=== PATIENT | male | born 1995 | race Hispanic/Latino ===

== ENCOUNTER 2017-02-23 06:44 | Emergency (ER) | payer BC ==
[2017-02-23 06:51] VITALS: BP 128/70
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
[2017-02-23] MEDS ORDERED: ACETAMINOPHEN 325 MG TABLET PO ONE (07:20)
[2017-02-23] MEDS ORDERED: ACETAMINOPHEN 325 MG TABLET ONE (07:34)
--- OUTSIDE RECORDS SUMMARY | 2017-02-23 08:01 | XMS REPORT | Continuity of Care Document ---
:1995 Author Organization [email or web address] [place] [address] Care Team Providers Name Role Phone Dayday Jeter Krystyna Primary Care Provider [phone] Source Comments This disclosure is being made pursuant to the [employer] program and maynot contain all information available regarding this patient.[email or web address] Active Allergies and Adverse Reactions No Known Allergies Current Medications Be aware that medications may not be up to date as of this document. Alwaysverify current medications with the patient. 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 Routine general medical examination at a health care facility 07/10/2014 Resolved Problems Problem Noted Date Resolved Date Gynecomastia, male 07/04/2015 06/24/2016 Left breast lump 06/19/2015 06/24/2016 Social History Tobacco Use Types Packs/Day Years Used Date Current Every Day Smoker Cigarettes 0.25 Smokeless Tobacco: Never Used Alcohol Use Drinks/Week oz/Week Comments Yes 0 Standard drinks or equivalent 0.0 ~once a month Last Filed Vital Signs Vital Sign Reading Time Taken Blood Pressure 100/70 06/24/2016 3:00 PM CDT Pulse 103 06/24/2016 3:00 PM CDT Temperature 36.4 C (97.6 F) 06/24/2016 3:00 PM CDT Respiratory Rate 18 06/24/2016 3:00 PM CDT Height 1.88 m (6' 2") 06/24/2016 3:00 PM CDT Weight 80.74 kg (178 lb) 06/24/2016 3:00 PM CDT Body Mass Index 22.84 06/24/2016 3:00 PM CDT Oxygen Saturation 99% 06/24/2016 3:00 PM CDT Plan of Care Health Maintenance Due Date Last Done Comments HPV Vaccine (9-26YO) (1 of 3 - Male 3 Dose Series) 2007 Meningococcal Vaccine (1 of 1) 2012 Pneumococcal Medium Risk 19-64 yo (1 of 1 - PPSV23) 2015 Tetanus/Pertussis (1 - Tdap) 2015 Influenza Immunization (#1) 2016 Results from Last 3 Months Not on file
--- OUTSIDE RECORDS SUMMARY | 2017-02-23 08:02 | XMS REPORT | Continuity of Care Document ---
:1995 Author Organization [facility] ([facility]) Address [address] [place] [address] Phone [phone] Care Team Providers Name Role Phone Nerissa Gray Primary Care Provider [phone] Source Comments This disclosure is being made pursuant to the Care Everywhere program, applicable federal and state laws, and may not contain all informaitonavailable regarding this patient.[facility] ([facility]) Active Allergies and Adverse Reactions No Known Allergies Current Medications Prescription Sig. Disp. Refills Start Date End Date Status ibuprofen 200 mg Take 600 mg by mouth Active tablet every 6 hours as needed. gabapentin 300 mg Take 1 Cap by mouth 90 Cap 3 10/18/2014 Active capsule 3 times daily. Indications: NEUROPATHIC PAIN HYDROmorphone 2 mg Take 1 Tab by mouth 20 Tab 0 11/24/2014 Active tablet every 6 hours as needed. Indications: PAIN hydrOXYzine HCl 25 mg Take 1-2 Tabs by 120 Tab 0 11/24/2014 Active tablet mouth every 4 hours as needed. Indications: ANXIETY HYDROcodone-acetaminop Take 1-2 Tabs by 100 Tab 0 11/24/2014 Active hen 5-325 mg per mouth every 4 hours tablet as needed. Indications: PAIN sennosides 8.6 mg Take 1-2 Tabs by 100 Tab 0 11/24/2014 Active tablet mouth 2 times daily. Indications: CONSTIPATION docusate 100 mg Take 1 Cap by mouth 100 Cap 0 11/24/2014 Active capsule 2 times daily as needed for Constipation. 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 Lumbar radiculopathy 11/21/2014 Essential and other specified forms of tremor 12/28/2008 Social History Tobacco Use Types Packs/Day Years Used Date Current Every Day Smoker Cigarettes 0.25 1 Smokeless Tobacco: Never Used Tobacco Cessation:Counseling Given: No Comments: Alcohol Use Drinks/Week oz/Week Comments No Last Filed Vital Signs Vital Sign Reading Time Taken Blood Pressure 100/55 11/24/2014 8:00 AM CDT Pulse 60 11/24/2014 8:00 AM CDT Temperature 35.8 C (96.4 F) 11/24/2014 8:00 AM CDT Respiratory Rate 18 11/24/2014 8:00 AM CDT Height 1.854 m (6' 1") 11/21/2014 6:50 PM CDT Weight 107.1 kg (236 lb 1.8 oz) 11/21/2014 6:50 PM CDT Body Mass Index 31.16 11/21/2014 6:50 PM CDT Oxygen Saturation 100% 11/23/2014 4:35 PM CDT Plan of Care Health Maintenance Due Date Last Done Comments Hepatitis B Vaccine (1 of 3 - Primary Series) 1995 HPV Vaccine (1 of 3 - Male 3 Dose Series) 2007 Tdap Vaccine 2007 Meningococcal Vaccine (1 of 1) 2012 Lipid Disorder Screening 2014 MMR Vaccine 2014 Td Vaccine 2014 Varicella Vaccine (1 of 2 - Adult - No Evidence of 2014 Immunity) Pneumococcal Vaccine (1 of 1 - PPSV23) 2015 Influenza Vaccine: Seasonal (#1) 04/07/2016 Results from Last 3 Months Not on file
== END 2017-02-23 07:55 | disposition home or self-care (01) ==
LOC: ER 06:44
DX: S00.03XA Contusion of scalp, initial encounter (principal); S70.02XA Contusion of left hip, initial encounter; S80.211A Abrasion, right knee, initial encounter; S50.312A Abrasion of left elbow, initial encounter; F17.200 Nicotine dependence, unspecified, uncomplicated; Y04.0XXA Assault by unarmed brawl or fight, initial encounter

== ENCOUNTER 2017-04-12 16:17 | Emergency (ER) | payer BC ==
[2017-04-12 16:22] VITALS: BP 120/88
[2017-04-12] MEDS ORDERED: DEXAMETHASONE SOD PHOSPHATE 10 MG/ML VIAL IM ONE (16:30)
[2017-04-12] MEDS ORDERED: TRIAMCINOLONE ACETONIDE 40 MG/ML VIAL IM ONE (16:31)
--- OUTSIDE RECORDS SUMMARY | 2017-04-12 16:32 | XMS REPORT | Clinical Summary ---
:1995 Author Organization [email or web address] [place] [address] Care Team Providers Name Role Phone Unavailable Primary Care Provider Unavailable Source Comments This disclosure is being made pursuant to the [employer] program and maynot contain all information available regarding this patient.[email or web address] Allergies No Known Allergies Current Medications Be aware [...] 07/04/2015 06/24/2016 Left breast lump 06/19/2015 06/24/2016 Family History Medical History Relation Name Comments Alcohol abuse Father Seizures Father No Known Problems Mother Other Paternal Grandfather Hodgkin lymphoma Relation Name Status Comments Father Alive Mother Alive Paternal Grandfather Alive Social History Tobacco Use Types Packs/Day Years Used Date Current Every Day Smoker Cigarettes 0.25 Smokeless Tobacco: Never Used Alcohol Use Drinks/Week oz/Week Comments Yes 0 Standard drinks or equivalent 0.0 ~once a month Sex Assigned at Date Recorded Not on file Last Filed Vital Signs Vital Sign Reading Time Taken Blood Pressure 100/70 06/24/2016 3:00 PM CDT Pulse 103 06/24/2016 3:00 PM CDT Temperature 36.4 C (97.6 F) 06/24/2016 3:00 PM CDT Respiratory Rate 18 06/24/2016 3:00 PM CDT Oxygen Saturation 99% 06/24/2016 3:00 PM CDT Inhaled Oxygen Concentration - - Weight 80.7 kg (178 lb) 06/24/2016 3:00 PM CDT Height 188 cm (6' 2") 06/24/2016 3:00 PM CDT Body Mass Index 22.85 06/24/2016 3:00 PM CDT Plan of Treatment Health Maintenance Due Date Last Done Comments HPV Vaccine (F:9-26YO,M: 9-22) (1 of 3 - Male 3 Dose 2007 Series) Meningococcal Vaccine (1 of 1) 2012 Pneumococcal Medium Risk 19-64 yo (1 of 1 - PPSV23) 2015 Tetanus/Pertussis (1 - Tdap) 2015 INFLUENZA IMMUNIZATION (#1) 2016 Results Not on filefrom Last 3 Months Insurance Payer Benefit Plan / Subscriber ID Type Phone Address Group BLUE CROSS OUT BLUE CROSS OUT [id number] Out of State [phone] [id number] OF [facility] [address] [place] [address] [employer] [id number] [phone], [address] [place] [address] QUANG RINCON [employer] Self 1995 Home: [address] [phone] [place] [address] [employer] Employ[employer] Home: [id number] [phone] [facility] [address] [place] [address]
[2017-04-12] MEDS ORDERED: DEXAMETHASONE SOD PHOSPHATE 10 MG/ML VIAL ONE (16:33)
[2017-04-12] MEDS ORDERED: TRIAMCINOLONE ACETONIDE 40 MG/ML VIAL ONE (16:33)
--- NOTE | 2017-04-12 17:05 | ERNOTE ---
Integumentary HPI - Narrative Date of Service: 04/12/17 - General Presenting Symptoms: rash Time Seen by Provider: 04/12/17 16:25 Source: patient, RN notes reviewed Exam Limitations: no limitations - Immun/Allergies/Home Medications Immunizations: IMMUNIZATION HX Immunizations Up to Date Yes Allergies/Adverse Reactions: Allergies Allergy/AdvReac Type Severity Reaction Status Date / Time No Known Allergies Allergy Verified 04/12/17 16:22 Home Medications: HOME MEDICATIONS Triamcinolone Acetonide 15 gm TP TID #45 gm 04/12/17 [Last Taken Unknown] hydrOXYzine PAMOATE [Vistaril] 50 mg PO Q6H PRN #10 capsule 04/12/17 [Last Taken Unknown] predniSONE [Prednisone] 3 tab PO DAILY #30 tab 04/12/17 [Last Taken Unknown] - Pain Pain Score: 0 - History of Present Illness Narrative: 22 y/o male with a pruritic rash to his arms, groin region and face that began yesterday. [place]. He was unable to sleep last night because of the itching, despite taking Benadryl. He reports that when he gets poison lexi it always becomes very severe and requires "a shot and pills." Location: Reports: facial, torso, upper extremity, genitalia Quality: Reports: itching Severity: moderate Exposure: Reports: poison lexi/oak Review of Systems - Review of Systems Constitutional: Absent: fever, chills, malaise EYE: Present: no symptoms reported ENT: Absent: nose congestion, throat swelling Respiratory: Absent: shortness of breath, cough, wheezing Cardiology: Present: no symptoms reported Gastrointestinal/Abdominal: Present: no symptoms reported Genitourinary: Present: no symptoms reported Musculoskeletal: Absent: muscle pain, joint pain Skin: Present: rash. Absent: lumps, change in color Neurological: Absent: headache, dizziness/light-headedness Endocrine: Present: no symptoms reported Hematologic/Lymphatic: Present: no symptoms reported Psych: Present: no symptoms reported - Patient's Past Medical History Patient History - Medical: No pertinent hx Patient History - Cardiac/Respiratory: No pertinent hx Patient History - Cancer: No Hx of Cancer Patient History - Surgical Procedures: Appendectomy, Back Surgery - Social History Living Situations: home Alcohol Use: occasionally Drug Use: none - Immunizations Immunizations Up to Date: Yes Physical Exam - Physical Exam General Appearance: Present: wd/wn, alert, no apparent distress Eye Exam: Normal inspection: bilateral Ears, Nose, Throat: Present: normal ENT inspection Neck: Present: normal inspection, nontender, supple Respiratory: Present: no respiratory distress, normal breath sounds, no accessory muscle use, lungs clear Cardiovascular/Chest: Present: regular rate, rhythm, no murmur, normal peripheral pulses Extremity Exam: Present: normal range of motion, no edema Neurological Exam: Present: alert, oriented, normal mood/affect, no motor/ sensory deficits Skin Exam: Present: normal color, warm/dry, skin rash - maculopapular eruption - moderate on upper extremities, mild on forehead, genital exam deferred ED Progress - Vital Signs Patient's Vital Signs:: I have reviewed the patient's vital signs. Vital Signs: Vital Signs 04/12/17 16:19 Temperature 37.3 C Pulse Rate 93 Respiratory 12 Rate Blood Pressure 120/88 O2 Sat by Pulse 99 Oximetry - Progress/Reassessment Chief Complaint: Rash Progress:: Unchanged Departure Clinical Impression: Contact dermatitis due to poison lexi - Departure Disposition: Home self-care Condition: Good Instructions: Poison Lexi Dermatitis, Form - Excuse from Work, School, or Physical Activity Additional Instructions: Start prednisone in the morning - take with food Take hydroxyzine as needed for itching but probably just at night as it will cause drowsiness Prescriptions: Triamcinolone Acetonide 15 gm TP TID #45 gm hydrOXYzine PAMOATE [Vistaril] 50 mg PO Q6H PRN #10 capsule PRN Reason: Itching predniSONE [Prednisone] 3 tab PO DAILY #30 tab
== END 2017-04-12 16:45 | disposition home or self-care (01) ==
LOC: ER 16:17
DX: L23.7 Allergic contact dermatitis due to plants, except food (principal)